=== PATIENT | female | born 1995 | race Caucasian/White ===

== ENCOUNTER 2018-04-02 22:35 | Observation (INO) | payer OTHER ==
[~2018-04-02] VITALS: Ht 152.4 cm; Wt 85.3 kg
[2018-04-03] MEDS ORDERED: PREN-546 PO (00:11)
[2018-04-03] MEDS ORDERED: FERR-252 PO (00:11)
[2018-04-03] MEDS ORDERED: OSC500 PO (00:11)
[2018-04-03 00:16] VITALS: BP 114/63
== END 2018-04-03 00:15 | disposition home or self-care (01) ==
LOC: MLD 22:35
PROVIDERS: ADMIT Obstetrics & Gynecology; ATTEND Obstetrics & Gynecology
DX: O99.89 Other specified diseases and conditions complicating pregnancy, childbirth and the puerperium (principal); M54.5 Low back pain; Z3A.37 37 weeks gestation of pregnancy
CPT/HCPCS: 81000; C1758; G0378

== ENCOUNTER 2018-04-12 15:22 | Inpatient (IN) | payer OTHER ==
[~2018-04-12] VITALS: Ht 152.4 cm; Wt 88.0 kg
[~2018-04-12 15:22] MED LIST: FERR-252 PO; OSC500 PO; PREN-546 PO
[2018-04-12] MEDS ORDERED: IBUPROFEN 800 MG TAB PO PRN (15:45)
[2018-04-12] MEDS ORDERED: NALBUPHINE 10 MG/ML AMP IVP PRN (15:45)
[2018-04-12] MEDS ORDERED: OXYTOCIN 20 UNITS in LACTATED RINGERS 1,000 ML IV SCH (15:45)
[2018-04-12] MEDS ORDERED: CARBOPROST 250 MCG/ML AMP IM PRN (15:45)
[2018-04-12] MEDS ORDERED: METHYLERGONOVINE 0.2 MG/ML AMP IM PRN (15:45)
[2018-04-12] MEDS ORDERED: PROMETHAZINE 25 MG/ML VIAL IVP PRN (15:45)
[2018-04-12] MEDS ORDERED: OXYTOCIN 10 UNITS/ML VIAL IM SCH (15:45)
[2018-04-12] MEDS: LACTATED RINGERS 1,000 ML IV SCH (16:30)
[2018-04-12] MEDS ORDERED: MISOPROSTOL 25 MCG TAB VG SCH (16:30)
[2018-04-12] MEDS ORDERED: MISOPROSTOL 25 MCG TAB ONE (16:45)
[2018-04-12 16:53] LABS: BASOPHILS % (AUTO) 0.3 % (0.0-2.0); EOSINOPHILS # (AUTO) 0.2 K/uL (0-0.4); EOSINOPHILS % (AUTO) 2.1 % (0.0-4.0); HEMATOCRIT 30.8 % (36-48); HEMOGLOBIN 10.1 g/dL (12.0-16.0); LYMPHOCYTES # (AUTO) 2.1 K/uL (2.5-16.5); LYMPHOCYTES % (AUTO) 28.2 % (20.5-51.1); MEAN CORPUSCULAR HEMOGLOBIN 26 pg (27-31); MEAN CORPUSCULAR HGB CONC 33 g/dL (33-37); MEAN CORPUSCULAR VOLUME 77.7 fL (80-94); MONOCYTES # (AUTO) 0.5 K/uL (0.8-1.0); MONOCYTES % (AUTO) 6.9 % (1.7-9.3); NEUTROPHILS # (AUTO) 4.6 K/uL (1.8-7.7); NEUTROPHILS % (AUTO) 62.5 % (42.2-75.2); PLATELET COUNT (AUTO) 252 K/uL (140-450); RED BLOOD CELL COUNT(AUTO) 3.96 MIL/uL (4.20-5.40); RED CELL DISTRIBUTION WIDTH 14.5 % (11.6-13.7); WHITE BLOOD COUNT (AUTO) 7.3 K/uL (4.8-10.8)
[2018-04-12 17:00] VITALS: BP 132/61
[2018-04-12 17:04] LABS: BILIRUBIN,URINE NEGATIVE (NEGATIVE); BLOOD, URINE NEGATIVE (NEGATIVE); NITRITE, URINE NEGATIVE (NEGATIVE); UGLUCOSE NEGATIVE (NEGATIVE)
[2018-04-12 17:09] LABS: APPEARANCE,URINE SLIGHTLY HAZY (CLEAR); COLOR,URINE YELLOW (YELLOW); LEUKOCYTE ESTERASE ,URINE 2+ (NEGATIVE)
[2018-04-12 17:10] LABS: RBC,URINE 0-5 (RARE) /HPF (0-5); WBC,URINE 16-25 (MOD) /HPF (0-5)
[2018-04-12 17:23] LABS: POTASSIUM 3.6 mmol/L (3.5-5.1)
[2018-04-12 17:24] LABS: ANION GAP 10.9 (8-16); CARBON DIOXIDE 21.7 mmol/L (21-32)
[2018-04-12 17:25] LABS: CREATININE 0.6 mg/dL (0.6-1.3)
[2018-04-12 17:30] LABS: TOTAL BILIRUBIN 0.4 mg/dL (0.0-1.0)
[2018-04-12 17:31] LABS: ALBUMIN 2.4 g/dL (3.4-5.0)
[2018-04-12 19:10] LABS: RAPID PLASMA REAGIN NON-REACTIVE (Non Reactiv)
[2018-04-12] MEDS ORDERED: OXYTOCIN 20 UNITS/LR PREMIX 1,000 ML IV ONE (21:13)
[2018-04-12] MEDS ORDERED: NALBUPHINE 10 MG/ML AMP ONE (23:08)
[2018-04-12] MEDS ORDERED: PROMETHAZINE 25 MG/ML VIAL ONE (23:08)
[2018-04-13] MEDS: LACTATED RINGERS 1,000 ML IV SCH (00:17)
[2018-04-13] MEDS ORDERED: LIDOCAINE MPF 1% - 5 mL VIAL 0 ML ONE (01:24)
[2018-04-13] MEDS ORDERED: OXYTOCIN 10 UNITS/ML VIAL ONE (01:24)
[2018-04-13] MEDS ORDERED: NALBUPHINE 10 MG/ML AMP ONE (01:29)
[2018-04-13] MEDS ORDERED: PROMETHAZINE 25 MG/ML VIAL ONE (01:30)
[2018-04-13] MEDS ORDERED: BENZOCAINE/MENTHOL 20%-0.5% 60 GM CAN TP PRN (03:00)
[2018-04-13] MEDS ORDERED: METHYLERGONOVINE 0.2 MG/ML AMP IM PRN (03:00)
[2018-04-13] MEDS ORDERED: oxyCODONE/APAP 5/325 MG 1 TAB TAB PO PRN (03:00)
[2018-04-13] MEDS ORDERED: MEASLES, MUMPS, AND RUBELLA 1 VIAL SQVAC PRN (03:00)
[2018-04-13] MEDS ORDERED: TEMAZEPAM 15 MG CAP PO PRN (03:00)
[2018-04-13] MEDS ORDERED: OXYTOCIN 10 UNITS/ML VIAL IM PRN (03:00)
[2018-04-13] MEDS ORDERED: IBUPROFEN 800 MG TAB PO PRN (03:00)
[2018-04-13] MEDS ORDERED: HYDROcodone/APAP 5/325 MG 1 TAB TAB PO PRN (03:00)
--- NOTE | 2018-04-13 11:24 | NUR ---
PATIENT HAS BEEN SCREENED AND CATEGORIZED LOW NUTRITION RISK. PATIENT WILL BE SEEN WITHIN 7 DAYS OF ADMISSION. 04/19/[address]
[2018-04-13] MEDS ORDERED: DOCUSATE SOD/SENNA 50/8.6 MG 1 TAB PO SCH (21:00)
[2018-04-14 06:05] LABS: HEMATOCRIT 28.2 % (36-48); HEMOGLOBIN 9.4 g/dL (12.0-16.0)
== END 2018-04-14 17:15 | disposition home or self-care (01) | DRG 560 ==
LOC: MLD 15:22 → MFCC 04-13 05:00
PROVIDERS: ADMIT Obstetrics & Gynecology; ATTEND Obstetrics & Gynecology
PROC: 10E0XZZ Delivery of Products of Conception, External Approach (ICD-10-PCS; principal; 2018-04-13)
PROC: 3E0P7VZ Introduction of Hormone into Female Reproductive, Via Natural or Artificial Opening (ICD-10-PCS; 2018-04-13)
PROC: 3E0234Z Introduction of Serum, Toxoid and Vaccine into Muscle, Percutaneous Approach (ICD-10-PCS; 2018-04-14)
DX: O80 Encounter for full-term uncomplicated delivery (principal); Z23 Encounter for immunization; Z37.0 Single live birth; Z3A.39 39 weeks gestation of pregnancy
CPT/HCPCS: 36415; 51702; 59200; 59409; 80053; 81001; 85018; 85025; 86592; 86886; 86900; 86901; 87086; 87186; 90715; J2001; J2300; J2550; J2590; J7120

== ENCOUNTER 2023-06-29 18:08 | Emergency (ER) | payer OTHER ==
[~2023-06-29] VITALS: Ht 152.4 cm; Wt 6.4 kg
[2023-06-29 18:18] VITALS: BP 105/62; PULSE 72; RESP 13; TEMP 98.3; O2SAT 98
[2023-06-29] MEDS ORDERED: LIB25 PO (18:50)
[2023-06-29 19:00] VITALS: BP 105/62; PULSE 74; RESP 14; TEMP 95.3; O2SAT 98
== END 2023-06-29 19:00 | disposition home or self-care (01) ==
LOC: MED 18:08
DX: F10.239 Alcohol dependence with withdrawal, unspecified (principal); F10.229 Alcohol dependence with intoxication, unspecified; Y90.9 Presence of alcohol in blood, level not specified
CPT/HCPCS: 99283